=== PATIENT | female | born 1940 | race Caucasian/White ===

== ENCOUNTER → 2018-01-04 08:27 | Outpatient (CLI) | payer MEDICARE, OTHER, SELFPAY ==
[2018-01-04 09:28] LABS: Add Manual Diff / Slide Review NO; Basophils Percent Auto 0.9 % (0-2); Eosinophils Percent Auto 0.6 % (2-4); Hematocrit 40.9 % (36-46); Hemoglobin 13.8 g/dL (12.0-16.0); Lymphocytes Percent Auto 23.6 % (25-40); Mean Corpuscular HGB Conc 33.8 % (30-36); Mean Corpuscular Hemoglobin 32.1 PG (26-34); Mean Corpuscular Volume 94.9 fL (80-100); Monocytes Percent Auto 9.9 % (3-14); Neutrophils Absolute Auto 3700 /uL (3000-5900); Platelet Count 404 X10^3/uL (150-400); Red Cell Distribution Width 14.1 % (11.6-14.8); White Blood Cell Count 5.7 X10^3/uL (4.5-11.0)
[2018-01-04 09:50] LABS: Alanine Aminotransferase 32 IU/L (9-52); Albumin 4.3 g/dL (3.5-5.0); Albumin Globulin Ratio 1.5 (1.0-2.8); Alkaline Phosphatase 73 U/L (38-126); Aspartate Aminotransferase 28 IU/L (14-36); BUN Creatinine Ratio 17.1 (6-22); Bilirubin Total 0.6 mg/dL (0.2-1.3); Blood Urea Nitrogen 12 mg/dL (7-17); Calcium 9.7 mg/dL (8.4-10.2); Carbon Dioxide 31 mmol/L (22-32); Chloride 91 mmol/L (98-107); Cholesterol 177 mg/dL (140-199); Estimated Glomerular Filt Rate > 60.0 mL/min (>60); Globulin 2.9 g/dL (1.7-4.1); Glucose 95 mg/dL (80-110); HDL Cholesterol 85 mg/dL (40-60); HEMOLYSIS < 15 (0-50); LDL Cholesterol Calculated 82 mg/dL (<100); Potassium 4.2 mmol/L (3.4-5.1); Sodium 132 mmol/L (137-145); Total Protein 7.2 g/dL (6.3-8.2); Triglycerides 49 mg/dL (35-150)
[2018-01-04 10:05] LABS: Free T4, Direct Thyroxine 1.46 ng/dL (0.78-2.19)
[2018-01-04 10:19] LABS: Thyroid Stimulating Hormone 0.74 uIU/mL (0.47-4.68)
== END ==
PROVIDERS: PCP Internal Medicine; Visit Provider Internal Medicine
DX: I10 Essential (primary) hypertension (principal); E03.9 Hypothyroidism, unspecified; E78.2 Mixed hyperlipidemia
CPT/HCPCS: 36415; 80053; 80061; 84439; 84443; 85025

== ENCOUNTER → 2018-03-01 12:08 | Outpatient (CLI) | payer MEDICARE, OTHER, SELFPAY | PROVIDERS: PCP Internal Medicine; Visit Provider Internal Medicine | DX: M85.852 Other specified disorders of bone density and structure, left thigh (principal); Z78.0 Asymptomatic menopausal state; E07.9 Disorder of thyroid, unspecified | CPT/HCPCS: 77080 ==

== ENCOUNTER 2018-04-29 07:48 | Day surgery (SDC) | payer MEDICARE, OTHER, SELFPAY ==
[2018-04-29] VITALS (13 sets, daily range): BP systolic 77–120; BP diastolic 46–76; PULSE 51–74; RESP 8–17; TEMP 36.3–36.8; O2SAT 93–100; BMI 23.0
[2018-04-29] MEDS: SODIUM CHLORIDE 0.9% 1,000 ML 200 ML IV ×2 (08:18→09:15)
--- NOTE | 2018-04-29 08:39 | P.HP_ITS ---
History of Present Illness Date Patient Seen: 04/29/18 Time Patient Seen: 08:37 Chief complaint: [id number] Narrative: Very pleasant 78-year-old lady who presents today for a screening colonoscopy. Her last colonoscopy was in 2012 and she was noted to have multiple benign polyps at that time. Pathology of all the polyps revealed tubular adenomata structure. 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 No further treatment was recommended as all the margins were clear. Today she denies any problems or symptoms related to the function of her GI tract. She reports she needs colonoscopy for surveillance and screening purposes. Patient History Medical History Essential hypertension (Chronic) Acquired hypothyroidism (Chronic 1979) Osteopenia (Chronic 2004) Chronic back pain (Chronic 2012) Mixed hyperlipidemia (Chronic) Diverticulosis of large intestine without hemorrhage (Chronic 2004) History of adenomatous polyp of colon (Resolved 2011) Chicken pox (Resolved) Hayfever (Resolved) Measles (Resolved) Mumps (Resolved) Pulmonary hypertension (Resolved) Rubella (Resolved) Squamous cell cancer, anus (Resolved ~2011) Surgical History History of rectal surgery (Resolved ~2011) Family & Social History Family History: Reviewed 04/29/18 by Morena Diaz MD Social History: household members family Tobacco & Substance use: Smoking Status Never smoker Meds Home Medications Medication Instructions Recorded Confirmed Type BORON/CA/CU/MG/MN/VIT D/ZINC 1 tab PO Q DAY #0 07/16/12 01/01/18 History (#CALCIUM 600 + MINERALS) COENZYME Q10/VITAMIN E (CO-Q-10) 300 mg PO QDAY #0 11/23/12 01/01/18 History VITAMIN B COMPLEX 1 cap PO QDAY #0 11/23/12 01/01/18 History Vitamin E (VITAMIN E) 400 units PO QDAY #0 11/23/12 01/01/18 History [VITAMIN D3] #0 11/23/12 01/01/18 History aspirin 81 mg PO QDAY #0 11/23/12 01/01/18 History chlorthalidone 25 mg PO QDAY #90 tab 07/01/17 01/01/18 Rx lisinopril 10 mg PO Q DAY #90 tab 07/01/17 01/01/18 Rx simvastatin 40 mg PO QDAY #90 tab 07/01/17 01/01/18 Rx levothyroxine 88 mcg PO QDAY #90 tab 01/12/18 Rx Allergies Allergy/AdvReac Type Severity Reaction Status Date / Time No Known Drug Allergies Allergy Verified 01/01/18 14:12 Review of Systems Review of Systems All systems reviewed & are unremarkable except as noted in HPI and below Exam Vital Signs (past 8 hours): - 04/29/18 08:13 Temperature 97.4 F L Pulse Rate 74 Respiratory Rate 15 Blood Pressure 120/76 Pulse Oximetry 97 Oxygen Delivery Method Room Air Narrative Exam Narrative: Very pleasant well-nourished well-developed lady in no distress HEENT: Normocephalic and atraumatic, pupils equal round react to light accommodation with anicteric sclera Lungs: Clear to auscultation bilaterally Heart: Regular rate and rhythm without murmur rub or gallop Abdomen: Soft, nontender, active bowel sounds Extremities: Warm and well perfused Assessment & Plan Plan: Assessment/Plan Narrative: Very pleasant lady with personal history of tubular adenomas as well as a squamous cell carcinoma of the perianal region. We discussed the risks and benefits of repeat colonoscopy today the patient expressed a desire to complete the procedure.
[2018-04-29] MEDS: MIDAZOLAM 5 MG/5 ML VIAL IV (09:00)
[2018-04-29] MEDS: fentaNYL 250 MCG/5 ML INJ IV (09:02)
--- NOTE | 2018-04-29 09:08 | PM.OP.1 ---
Operative Date/Time/Diagnoses Date of procedure: 04/29/18 Time of procedure: 09:08 Pre-op diagnosis: Screening colonoscopy Post-op diagnosis: same Procedure & Clinicians Procedure: Colonoscopy to the cecum Same procedure as scheduled: Yes Indications: Last colonoscopy 5 years ago Personal history of colon polyps Surgeon: Morena Diaz Anesthesia Type: Sedation (Versed 4 mg; fentanyl 150 mcg) Operative Notes Findings: 1. Very poor prep with solid stool beginning at the splenic flexure 2. No gross polyps or obvious lesions 3. Sigmoid and descending colon diverticulosis with mostly very large pockets of a cm or more. No evidence of infection, inflammation, or hemorrhage 4. Elongated and tortuous sigmoid and transverse colons. The colon wall is essentially atonic 5. Grade 1 internal hemorrhoids 6. Perianal scar identified with no evidence of recurrent lesion Closure Type: not applicable Procedure in detail: After obtaining informed consent, the patient was brought to the GI suite and placed in the left lateral decubitus position on the examination table. After placement of appropriate monitors, the patient was given incremental doses of Versed and Fentanyl until an appropriate level of sedation was achieved. A time out was held per SCOAP protocol. A digital rectal examination was performed and did not reveal any masses or obstructing lesions. The colonoscope was gently passed into the patient's anus and the entire colon navigated to the level of the cecum with significant difficulty due to colon elongation and atony. Multiple changes of position and external pressure were required to reach the cecum. Solid stool was encountered in clumps starting at the splenic flexure. There was thick fecal material throughout the remainder of the colon. We made a concerted effort to wash this out and aspirated as much as possible to give as completing exam as we are capable of providing in this situation. Once in the cecum, the scope was withdrawn being sure to go before and beyond all mucosal folds and prominences and get an excellent examination. The findings are noted above. At the level of the rectal vault, the scope was retroflexed and the internal anal canal was examined. The scope was straightened and air aspirated from the colon. The instrument was removed from the patient's body and the procedure was concluded. The patient was allowed to awaken from sedation without difficulty and taken to the post-anesthesia care unit in good condition. Total sedation time 30 min Total withdrawal time 16 min Complications: none Condition: stable Disposition: PACU Plan for aftercare: 1. Discharge to home 2. Plan for next colonoscopy in 5 years or as clinically indicated
--- NOTE | 2018-04-29 11:00 | SUR.PHASEII ---
pt dressed , steady on feet, ready to go home at 1045
== END 2018-04-29 10:46 | disposition home or self-care (01) ==
PROVIDERS: PCP Internal Medicine; Visit Provider Surgery
PROC: 0DJD8ZZ Inspection of Lower Intestinal Tract, Via Natural or Artificial Opening Endoscopic (ICD-10-PCS; CPT 45378; principal; 2018-04-29 08:45)
DX: Z86.010 Personal history of colon polyps (principal); K57.30 Diverticulosis of large intestine without perforation or abscess without bleeding; K64.0 First degree hemorrhoids; I10 Essential (primary) hypertension; E03.9 Hypothyroidism, unspecified; E78.5 Hyperlipidemia, unspecified
CPT/HCPCS: G0121; 99152; 99153; J2250; J3010

== ENCOUNTER → 2018-08-24 10:21 | Outpatient (CLI) | payer MEDICARE, OTHER, SELFPAY ==
--- NOTE | 2018-08-24 | DI.MG.S_ITS ---
BILATERAL DIGITAL SCREENING MAMMOGRAM 3D/2D WITH CAD: 08/24/2018 CLINICAL: Routine screening. Comparison is made to exams dated: 08/17/2017 mammogram, 07/25/2016 mammogram, 07/24/2015 mammogram, and 07/12/2014 mammogram - [facility]. The tissue of both breasts is heterogeneously dense. This may lower the sensitivity of mammography. Current study was also evaluated with a Computer Aided Detection (CAD) system. There are benign diffuse calcifications in both breasts. No significant masses, calcifications, or other findings are seen in either breast. There has been no significant interval change. IMPRESSION: There is no mammographic evidence of malignancy. A 1 year screening mammogram is recommended. This exam was interpreted at Station ID: [id number]. NOTE: For mammograms, a report in lay terms will be sent to the patient. Approximately 15% of breast malignancies will not be visualized mammographically. In the management of a palpable breast mass, a negative mammogram must not discourage biopsy of a clinically suspicious lesion. Electronically Signed By: Holden cooley/tejal:08/24/2018 18:25:30 letter sent: Normal Exam ACR BI-RADS Category 2: Benign Finding(s) 3342F
== END ==
PROVIDERS: PCP Internal Medicine; Visit Provider Internal Medicine
DX: Z12.31 Encounter for screening mammogram for malignant neoplasm of breast (principal)
CPT/HCPCS: 77063; 77067

== ENCOUNTER → 2018-09-04 08:54 | Outpatient (CLI) | payer MEDICARE, OTHER, SELFPAY ==
[2018-09-04 10:04] LABS: Alanine Aminotransferase 27 IU/L (9-52); Albumin 4.5 g/dL (3.5-5.0); Albumin Globulin Ratio 1.7 (1.0-2.8); Alkaline Phosphatase 37 U/L (38-126); Aspartate Aminotransferase 24 IU/L (14-36); BUN Creatinine Ratio 22.9 (6-22); Bilirubin Total 0.5 mg/dL (0.2-1.3); Blood Urea Nitrogen 16 mg/dL (7-17); Carbon Dioxide 31 mmol/L (22-32); Chloride 91 mmol/L (98-107); Cholesterol 198 mg/dL (140-199); Estimated Glomerular Filt Rate > 60.0 mL/min (>60); Globulin 2.6 g/dL (1.7-4.1); Glucose 84 mg/dL (80-110); HDL Cholesterol 106 mg/dL (40-60); HEMOLYSIS < 15 (0-50); LDL Cholesterol Calculated 84 mg/dL (<100); Potassium 4.5 mmol/L (3.4-5.1); Sodium 134 mmol/L (137-145); Total Protein 7.1 g/dL (6.3-8.2); Triglycerides 40 mg/dL (35-150)
[2018-09-04 10:19] LABS: Free T4, Direct Thyroxine 1.22 ng/dL (0.78-2.19)
[2018-09-04 10:33] LABS: Thyroid Stimulating Hormone 1.19 uIU/mL (0.47-4.68)
== END ==
PROVIDERS: PCP Internal Medicine; Visit Provider Internal Medicine
DX: E03.9 Hypothyroidism, unspecified (principal); E78.2 Mixed hyperlipidemia; I10 Essential (primary) hypertension
CPT/HCPCS: 36415; 80053; 80061; 84439; 84443

== ENCOUNTER → 2019-08-30 11:15 | Outpatient (CLI) | payer MEDICARE, OTHER, SELFPAY ==
--- NOTE | 2019-08-30 | DI.MG.S_ITS ---
BILATERAL DIGITAL SCREENING MAMMOGRAM 3D/2D WITH CAD: 08/30/2019 CLINICAL: Routine screening. Comparison is made to exams dated: 08/24/2018 mammogram, 08/17/2017 mammogram, and 07/25/2016 mammogram - [facility]. The tissue of both breasts is heterogeneously dense. This may lower the sensitivity of mammography. Current study was also evaluated with a Computer Aided Detection (CAD) system. There are benign diffuse calcifications in both breasts. No significant masses, calcifications, or other findings are seen in either breast. There has been no significant interval change. IMPRESSION: There is no mammographic evidence of malignancy. A 1 year screening mammogram is recommended. This exam was interpreted at Station ID: [id number]. NOTE: For mammograms, a report in lay terms will be sent to the patient. Approximately 15% of breast malignancies will not be visualized mammographically. In the management of a palpable breast mass, a negative mammogram must not discourage biopsy of a clinically suspicious lesion. Electronically Signed By: Aida joseph/tejal:08/30/2019 16:01:39 letter sent: Normal Exam ACR BI-RADS Category 2: Benign Finding(s) 3342F
== END ==
PROVIDERS: PCP Internal Medicine; Referring Provider Internal Medicine; Visit Provider Internal Medicine
DX: Z12.31 Encounter for screening mammogram for malignant neoplasm of breast (principal)
CPT/HCPCS: 77063; 77067

== ENCOUNTER → 2019-10-24 13:34 | Outpatient (CLI) | payer MEDICARE, OTHER, SELFPAY ==
--- NOTE | 2019-10-24 | DI.RAD.S_ITS ---
PROCEDURE: XR HIP W PEL IF DONE RT 2V INDICATIONS: Unilateral primary osteoarthritis, right hip TECHNIQUE: AP pelvis with lateral view(s) of the right hip(s). COMPARISON: None. FINDINGS: Bones: No fractures or dislocations. Pelvic ring appears intact. No suspicious bony lesions. Severe right hip joint degeneration with [id number] appearance. Scattered degenerative subchondral sclerosis and spurring. Mild left hip joint degeneration. Lower lumbar spondylosis and facet arthropathy. Subchondral sclerosis and cystic change also noted at the pubis symphysis. Soft tissues: The visualized bowel gas pattern is normal. No suspicious soft tissue calcifications. IMPRESSION: Severe right hip joint degeneration with [id number] appearance Lower lumbar spondylosis and facet disease Dictated by: Maximus Kumar M.D. on 10/24/2019 at 14:33 Approved by: Maximus Kumar M.D. on 10/24/2019 at 14:35
== END ==
PROVIDERS: PCP Internal Medicine; Referring Provider Chiropractor; Visit Provider Chiropractor
DX: M16.11 Unilateral primary osteoarthritis, right hip (principal); M47.816 Spondylosis without myelopathy or radiculopathy, lumbar region
CPT/HCPCS: 73502

== ENCOUNTER → 2019-11-04 14:21 | Outpatient (CLI) | payer MEDICARE, OTHER, SELFPAY ==
[2019-11-04 16:40] LABS: Add Manual Diff / Slide Review NO; Basophils Absolute Auto 100 /uL (0-100); Basophils Percent Auto 0.7 % (0-2); Eosinophils Absolute Auto 0 /uL (0-450); Eosinophils Percent Auto 0.4 % (2-4); Hemoglobin 12.1 g/dL (12.0-16.0); Lymphocytes Absolute Auto 1800 /uL (1100-4500); Lymphocytes Percent Auto 22.3 % (25-40); Mean Corpuscular HGB Conc 33.6 % (30-36); Mean Corpuscular Hemoglobin 32.1 PG (26-34); Mean Corpuscular Volume 95.5 fL (80-100); Monocytes Absolute Auto 600 /uL (0-900); Monocytes Percent Auto 7.9 % (3-14); Neutrophils Absolute Auto 5500 /uL (1500-7000); Neutrophils Percent Auto 68.7 % (50-75); Platelet Count 472 X10^3/uL (150-400); Red Blood Cell Count 3.77 X10^6/uL (4.0-5.2); Red Cell Distribution Width 13.7 % (11.6-14.8); White Blood Cell Count 8.1 X10^3/uL (4.5-11.0)
[2019-11-04 17:05] LABS: Alanine Aminotransferase 15 IU/L (<35); Albumin 4.8 g/dL (3.5-5.0); Albumin Globulin Ratio 1.7 (1.0-2.8); Alkaline Phosphatase 43 U/L (38-126); Aspartate Aminotransferase 29 IU/L (14-36); BUN Creatinine Ratio 31.8 (6-22); Bilirubin Total 0.3 mg/dL (0.2-1.3); Blood Urea Nitrogen 21 mg/dL (7-17); Calcium 9.9 mg/dL (8.4-10.2); Carbon Dioxide 30 mmol/L (22-32); Chloride 88 mmol/L (98-107); Estimated Glomerular Filt Rate > 60.0 mL/min (>60); Globulin 2.9 g/dL (1.7-4.1); Glucose 94 mg/dL (80-110); HEMOLYSIS < 15 (0-50); Potassium 3.6 mmol/L (3.4-5.1); Sodium 128 mmol/L (137-145); Total Protein 7.7 g/dL (6.3-8.2)
[2019-11-04 17:15] LABS: C-Reactive Protein Quant < 0.5 mg/dL (<1.0); Erythrocyte Sedimentation Rate 5 MM/HR (0-20)
[2019-11-04 17:21] LABS: Free T4, Direct Thyroxine 1.38 ng/dL (0.78-2.19)
[2019-11-04 17:35] LABS: Thyroid Stimulating Hormone 2.67 uIU/mL (0.47-4.68)
== END ==
PROVIDERS: PCP Internal Medicine; Referring Provider Internal Medicine; Visit Provider Internal Medicine
DX: E03.9 Hypothyroidism, unspecified (principal); E78.2 Mixed hyperlipidemia; G89.29 Other chronic pain; I10 Essential (primary) hypertension; M54.9 Dorsalgia, unspecified; M85.80 Other specified disorders of bone density and structure, unspecified site
CPT/HCPCS: 36415; 80053; 84439; 84443; 85025; 85651; 86140

== ENCOUNTER → 2019-11-17 09:39 | Outpatient (CLI) | payer MEDICARE, OTHER, SELFPAY ==
[2019-11-17 09:50] LABS: Bacteria Urine None Seen; RBC Urine None Seen (0-5/HPF); WBC Urine None Seen (0-5/HPF)
[2019-11-17 10:03] LABS: Add Manual Diff / Slide Review NO; Basophils Absolute Auto 0 /uL (0-100); Basophils Percent Auto 0.7 % (0-2); Eosinophils Absolute Auto 0 /uL (0-450); Eosinophils Percent Auto 0.3 % (2-4); Hematocrit 36.8 % (36-46); Hemoglobin 12.5 g/dL (12.0-16.0); Lymphocytes Absolute Auto 1500 /uL (1100-4500); Lymphocytes Percent Auto 21.8 % (25-40); Mean Corpuscular Hemoglobin 32.3 PG (26-34); Mean Corpuscular Volume 94.8 fL (80-100); Monocytes Absolute Auto 600 /uL (0-900); Monocytes Percent Auto 9.4 % (3-14); Neutrophils Absolute Auto 4700 /uL (1500-7000); Neutrophils Percent Auto 67.8 % (50-75); Platelet Count 479 X10^3/uL (150-400); Red Blood Cell Count 3.88 X10^6/uL (4.0-5.2); Red Cell Distribution Width 13.3 % (11.6-14.8); White Blood Cell Count 6.9 X10^3/uL (4.5-11.0)
[2019-11-17 10:42] LABS: BUN Creatinine Ratio 35.6 (6-22); Blood Urea Nitrogen 21 mg/dL (7-17); Calcium 9.8 mg/dL (8.4-10.2); Carbon Dioxide 29 mmol/L (22-32); Chloride 90 mmol/L (98-107); Estimated Glomerular Filt Rate > 60.0 mL/min (>60); Glucose 101 mg/dL (80-110); HEMOLYSIS < 15 (0-50); Sodium 129 mmol/L (137-145)
[2019-11-17 11:04] LABS: Appearance Urine UA CLEAR; Bilirubin Urine UA NEGATIVE (NEGATIVE); Color Urine UA YELLOW; Glucose Urine UA NEGATIVE (Negative); Ketones Urine UA NEGATIVE (NEGATIVE); Leukocyte Esterase Urine UA NEGATIVE (NEGATIVE); Nitrite Urine UA NEGATIVE (Negative); Occult Blood Urine UA NEGATIVE (Negative); Protein Urine UA NEGATIVE (Negative); Urobilinogen Urine UA 0.2 E.U./dL (0.2)
[2019-11-17 11:09] LABS: Culture Indicated Urine Cult Not Indicated
== END ==
PROVIDERS: PCP Internal Medicine; Referring Provider Orthopaedic Surgery; Visit Provider Orthopaedic Surgery
DX: Z01.812 Encounter for preprocedural laboratory examination (principal); R73.9 Hyperglycemia, unspecified; N39.0 Urinary tract infection, site not specified
CPT/HCPCS: 36415; 80048; 81001; 83036; 85025; 93005

== ENCOUNTER → 2019-12-05 12:05 | Outpatient (CLI) | payer MEDICARE, OTHER, SELFPAY ==
[2019-12-08 16:14] LABS: COVID19 Sendout Not Detected (Not Detected)
== END ==
PROVIDERS: PCP Internal Medicine; Visit Provider Registered Nurse
DX: Z01.812 Encounter for preprocedural laboratory examination (principal)
CPT/HCPCS: 87635

== ENCOUNTER → 2019-12-07 16:15 | Outpatient (CLI) | payer MEDICARE, OTHER, SELFPAY ==
[2019-12-07 18:07] LABS: COVID19 -Nasal RAPID Negative (Negative)
== END ==
PROVIDERS: PCP Internal Medicine; Visit Provider Registered Nurse
DX: Z01.812 Encounter for preprocedural laboratory examination (principal)
CPT/HCPCS: 87635

== ENCOUNTER 2019-12-09 09:52 | Observation (INO) | payer MEDICARE, OTHER, SELFPAY ==
[2019-11-30 12:56] VITALS: BMI 22.1
[2019-12-08] VITALS (24 sets, daily range): BP systolic 79–140; BP diastolic 43–81; PULSE 55–71; RESP 7–18; TEMP 35.6–37.1; O2SAT 88–99; BMI 21.5
--- NOTE | 2019-12-08 | DI.RAD.S_ITS ---
PROCEDURE: XR HIP W PEL IF DONE RT 2V INDICATIONS: RIGHT CHRISTOPH TECHNIQUE: AP pelvis and lateral view of the right hip acquired. COMPARISON: [facility], [place], XR HIP W PEL IF DONE RT 2V, 12/08/2019, 9:50. [facility], [place], XR HIP W PEL IF DONE RT 2V, 10/24/2019, 13:34. FINDINGS: Bones: Patient is status post right hip arthroplasty, with hardware components in expected positions. The hip joint appears congruent. The visualized bony structures appear intact. Soft tissues: Overlying postoperative changes are noted. No suspicious soft tissue densities. IMPRESSION: Normal alignment after right total hip arthroplasty. Dictated by: Jose Fuller M.D. on 12/08/2019 at 12:09 Approved by: Jose Fuller M.D. on 12/08/2019 at 12:09
--- NOTE | 2019-12-08 06:00 | DI.RAD.S_ITS ---
PROCEDURE: XR HIP W PEL IF DONE RT 2V INDICATIONS: postop right hip TECHNIQUE: Fluoroscopic images were obtained during an operative procedure and submitted for interpretation following the completion of the procedure. COMPARISON: [facility], [place], XR HIP W PEL IF DONE RT 2V, 12/08/2019, 11:20. [facility], [place], XR HIP W PEL IF DONE RT 2V, 10/24/2019, 13:34. FINDINGS: These fluoroscopic images were performed for intraoperative localization. On these images, right hip arthroplasty hardware is placed. Please correlate with intraoperative findings. IMPRESSION: Normal intraoperative examination. Dictated by: Al Juarez M.D. on 12/08/2019 at 12:01 Approved by: Al Juarez M.D. on 12/08/2019 at 12:02
[2019-12-08] MEDS: GABAPENTIN 300 MG CAPSULE PO (06:56)
[2019-12-08] MEDS: ACETAMINOPHEN 325 MG TABLET 975 MG PO (06:56)
[2019-12-08] MEDS: CELECOXIB 200 MG CAPSULE PO (06:57)
[2019-12-08] MEDS: LACTATED RINGERS 1,000 ML 42 ML IV ×3 (06:57→11:11)
[2019-12-08] MEDS: VANCOMYCIN 1,000 MG/200 ML PIGGYBACK 200 MG IV (07:05)
--- NOTE | 2019-12-08 07:36 | PM.PREOP ---
Pre-operative Note COVID-19 COVID-19 status: Negative Interval Note History & Physical reviewed/Exam performed by Physician: Yes Changes to H&P: No
--- NOTE | 2019-12-08 07:50 | PM.OP.1 ---
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 Non-operative management has failed and the patient has requested total hip replacement. The risks, benefits and alternatives to surgery were discussed with the patient prior to proceeding. Risks discussed included, but were not limited to, failure to relieve pain, leg length discrepancy, dislocation, stiffness, infection, nerve damage, deep venous thrombosis, pulmonary embolism, stroke, coma, heart attack, permanent paralysis and , as well as the potential need for eventual revision of the prosthetic. Surgeon: Chastity Hightower Technical Operations Specialist: Manuel Brown Anesthesia Type: General and Spinal Operative Notes Findings: Severe right hip AVN, soft bone Closure Type: primary Specimen(s): none sent Prosthetic devices, grafts, tissues, transplants, or devices: Hightower and Nephew R3 50, 50 neutral by 32, size 3 anthology standard offset, -3 femoral head by 32 Oxinium 15 mm screw Estimated Blood Loss (mL): 250 Blood products transfused: none Procedure in detail: The patient was brought to the operating room. Patient was carefully positioned in the supine position. Time-out was performed and antibiotics were given. Anesthesia was induced. She was positioned in the on the table in order to allow hyperextension of the hip. The right lower extremity was prepped and draped in a standard sterile fashion. An anterior right hip incision was made 1 fingerbreadth lateral to the anterior superior iliac spine and extended distally towards the greater trochanter. Dissection was carried out through skin and subcutaneous tissues. The skin and subcutaneous tissues were carefully injected with Lidocaine with epi. Superficial hemostasis was achieved. The fascia over the tensor fascia gena was defined and incised with a knife. Two Allis clamps were used to grasp the fascia. Tensor fascia gena was retracted laterally. A gelpi retractor was placed. Dissection was carried out down along the neck. The circumflex vessels were carefully identified and cauterized with the Aqua Mantis. There was good visualization of the femoral neck. A Cobra was placed superior to the neck and the gluteus fibers were carefully stripped from that superior aspect of the capsule. A 2nd retractor was placed along the inferior aspect of the neck. The rectus insertion along the capsule was partially released. A 3rd retractor that was then gently placed over the rim of the acetabulum under the rectus. Capsule was carefully incised and released from the intertrochanteric line circumferentially superior to the mid sagittal line and inferiorly to the mid sagittal line until the lesser trochanter was palpable. A tag stitch was placed both in the superior and inferior limb of the capsular insertion. Along the acetabulum capsule was also released up to the mid sagittal 12:00 position. A portion of the labrum was resected. A saw was used to perform an osteotomy at the level of the intertrochanteric line and the junction of the superior femoral neck leaving approximately 1 finger breath of residual inferior neck above the lesser trochanter. A 2nd cut was made along the femoral neck at the base of the head and a napkin ring of neck was removed. Corkscrew was placed in the femoral head and the head was removed without difficulty. Retractors were then repositioned around the acetabulum. Residual labrum was resected and additional osteophytes were removed. A reamer that was 4 mm below the templated size was placed by hand in the acetabulum and it was reamed to centralize the acetabulum. It was then reamed up to 2 under the templated size and fluoroscopy was brought in to confirm the position of the reaming and depth of reaming. I reamed 1 under the anticipated size and touched the rim with line to line reaming. A trial cup was placed and noted that it was appropriately sized and fluoroscopy confirmed position and depth. The component was open and inserted without difficulty fluoroscopic imaging was used to confirm that the cup had been adequately seated and was well positioned. The cup was further stabilized with a single screw. The cup was tested and noted to be stable. Attention was then directed to the femur. The femur was gently hyperextended additional capsular release was performed as needed in order to allow adequate visualization of the proximal femur with elevation of the femur. Patient was placed in a hyperextended slightly adducted position with maximum external rotation. Box osteotome was used to check for any residual neck as well as sclerotic bone along the trochanter. [place]well pepper was placed in the femur. Additional broaching was performed. Canal finder was used to determine the alignment of the canal and position. Size 1 broach was placed. The canal was then appropriately broached up to the templated size as long as there was adequate stability of the broach and serial advancement of the broach without excessive impingement. Specific attention was directed at avoiding varus attempting to direct the distal aspect of the broach more anteriorly and avoiding excessive anteversion. Trial reduction showed acceptable range of motion, good stability, no posterior impingement, evangelical of leg length and appropriate lateral shuck. I also hyperflexed the hip and checked that there was no impingement anteriorly and there was good stability with flexion, adduction and internal rotation. Marcaine and Exparel were injected. The stem was placed without difficulty. Repeat trial reduction and x-ray showed acceptable overall position, length, and no evidence of the femoral fracture. Final head was placed. Wound was meticulously irrigated with normal saline. The hip was reduced and additional Exparel and Marcaine were injected. The capsule was closed with interrupted nonabsorbable sutures. The fascia of the tensor was closed with interrupted and running Vicryl. No drain was placed. Any tensor fascia gena muscle that appeared to be contused or injured which was a minimal amount was carefully resected. Capsule around the tensor was injected with Exparel and Marcaine. The skin was closed with barbed stitches for the subcutaneous tissue and skin. We also used surgical glue. The wound was dressed sterilely. Brief Betadine soak was also used and was meticulously irrigated with normal saline. Patient was transferred to recovery room in satisfactory condition. Complications: none Post-operative Condition: stable Disposition: Acute Care Plan for aftercare: The patient will be maintained on a standard total hip replacement protocol with weight bearing as tolerated and anterior hip precautions. The patient will receive Aspirin and sequential compression devices for DVT prophylaxis. The patient will be discharged home when safe for the home environment.
[2019-12-08] MEDS: CEFAZOLIN 2 GM/100 ML FROZ.PIGGY IV ×3 (07:59→23:46)
[2019-12-08] MEDS: TRANEXAMIC ACID 1,000 MG VIAL 1000 MG INJ ×2 (08:25→10:46)
--- NOTE | 2019-12-08 08:39 | SUR.OPER ---
Supine on padded Lebo table with bilateral legs secured in padded positioning boots and suspended in positioning spars, operative leg in traction per surgeon. Head on one pillow. Arm on non-operative side secured on padded armboard <90 degrees abduction. Arm on operative side padded and resting across chest then secured with tape over sheet. Padded perineal post in place per surgeon.
[2019-12-08] MEDS: BUPIVACAINE 0.25% W/ EPI 30 ML VIAL 60 ML INJ (08:43)
[2019-12-08] MEDS: BUPIVACAINE LIPOSOME 266 MG/20 ML VIAL INJ (08:43)
[2019-12-08] MEDS: SODIUM CHLORIDE IRRIG SOLUTION 250 ML, POVIDONE-IODINE SPONGE STICKS 1 APPLIC IRR (08:46)
--- NOTE | 2019-12-08 12:01 | SUR.PHASEI ---
Report called to Maryam
--- NOTE | 2019-12-08 12:30 | CM.DANOTE ---
Discharge Planning/Care Management DCP: assessment: case received, EMR reviewed and went to room to meet pt. She has not yet admitted to her acute care room from surgery. Pt is a 79 year old female who admitted early this morning for a scheduled surgery: R CHRISTOPH/anterior approach. Surgeon: Dr. Rip Hightower Payer: Medicare dn [employer]. Admission status: SDC (OUTPT W/BED): confirmed by UR GABY Edmondson after a discussion with Dr. Hightower. Expect pt to arrive to the acute care floor sometime this afternoon. PT will see pt. P: pt identifies her plan: per pre-op phone discussion with GABY Donaldson: as home when stable for same with her daughter Clementina to assist her. Clementina's tel #: [phone] Will check in later today or in the morning to confirm that this remains her plan and follow accordingly for any d/c needs that may arise. CM Discharge Assessment Start: 12/08/19 12:28 Freq: Status: Active Protocol: Document 12/08/19 12:29 ITV (Rec: 12/08/19 12:30 ITV [id number]) Discharge Planning Assessment Advance Directives? Yes Advance Directives on File No History Provided By Medical Record Prior Living Arrangements Apartment/Condo Household Members none Whiteboard Updated in Patient Room with Yes name and ext. # of Tankage Grinder Review Status In Process Pre-Anesthesia Assessment Start: 11/30/19 12:56 Freq: Status: Active Protocol: Document 11/30/19 12:56 CAB (Rec: 11/30/19 13:19 CAB [id number]) Pre-Anesthesia Assessment Preferred Name Senia Patient Information Reviewed Via Phone Assessment Assessment Completed With Patient Diagnostic Results BMP/CMP,CBC,EKG Comment Labs/EKG @ 11/17/19-COVID testing not identified Primary Care Provider Yogi Murcia Seen Specialist in Last 12 Months Yes Specialist Seen Opthamologist/In Home Tutor, Orthopedist Primary Language Bulgarian [employer] Driver Required No Height 162.56 cm Weight 58.513 kg Body Mass Index (BMI) 22.1 Hearing Ability Normal Visual Impairment No Limitations Visual Assist None Dentition Type Teeth, Natural Present Barriers to Learning None Other Aids No Hx Anesthesia Reactions No Hx Family Anesthesia Reaction No Hx Malignant Hyperthermia No Hx Blood Transfusions No Anesthesia Review Requested No alcohol intake current alcohol intake frequency 0-2 drinks per day Smoking Status Never smoker Substance Use Type does not use Pain Present Pain Reported Musculoskeletal Symptoms Abnormal Gait,Back Pain, Difficulty Walking,Joint Pain, Limited Range of Motion History of Falling (Recent or History of No ) Patient is completely paralyzed or No completely immobile Prosthesis or Orthotic Device Cane Mental Status Oriented to own ability Is patient on oxygen? No Does patient have MCCANN/SOB No Hx Sleep Apnea No Currently Taking a Beta Liz No Can You Climb a Flight of Stairs Without Yes SOB Hx Chest Pain No Hx SOB No Hx Syncope or Dizziness No Anti-Coagulant Therapy No Has a Bookbinder Apprentice No Cardiac Testing No Hx Pacemaker/ICD No Pacemaker Rep Required? No Cardiac Clearance Received Not Applicable Diet Type At Home Low Carb dysphagia No Urinary Catheter Present No Hx Urinary Self Catheterization No Diabetes No HgbA1C 5.4 Date 11/17/19 Patient No Lactating No Hx Drug Resistant Organism No Presence of External or Internal Medical No Devices Have you had any close contact with No someone diagnosed with COVID-19? Evaluation/Screening for possible COVID- Yes 19 infection completed? Marital Status / Lives With none Prior Living Arrangements Apartment/[place] [employer] Support System Child/Children Does the Patient Have Assistance After Yes: Daughter will stay with Surgery pt at [place] to assist Patient Discharge Plan Description Return Home Comment Pt advised overnight length of stay per surgeon Feels Safe in Current Environment Yes Been Physically Hurt or Threatened By a No Person in Current Environment Do you have thoughts of harming yourself None or others? Are you currently considering suicide? No Do you have a plan to hurt yourself or No Plan others? Do You Have Any Spiritual Beliefs That No May Affect Your HC Choices? Do You Have Any Cultural Practices That No May Affect Your HC Choices? Who Can We Speak to About Patient's Care Family, friends Identifying Code for Release of Patient Declines to issue Information Health Care Proxy/Next of Kin Clementina (daughter) Health Care Proxy Emergency Contact Name Clementina (daughter) Emergency Contact Advance Directives? Yes Advance Directives on File No Requested Patient Bring Advanced Yes Directives DOS Power of Judge Clerk Yes Power of Judge Clerk Name Clementina (flash) Power of Judge Clerk PAC Instructions Do not shave/clip surgical site,Durable medical equipment ,Medications to take/avoid, Nasal antibiotic,No ETOH/ petroleum product on skin DOS, NPO,Post-op transportation,Pre -surgical wash,Sturdy shoes/ comfortable clothes,Do not bring valuables and remove jewelry
[2019-12-08] MEDS: LACTATED RINGERS 1,000 ML 125 ML IV (13:20)
[2019-12-08] MEDS: IBUPROFEN 400 MG TABLET PO ×3 (13:58→20:55)
[2019-12-08] MEDS: ACETAMINOPHEN 325 MG TABLET 650 MG PO ×2 (13:58→20:55)
--- NOTE | 2019-12-08 14:28 | PC.NURSE ---
Patient arrived to the floor at 1207. She denies pain and states that she is comfortable. Tylenol and ibuprofen given to patient in case she gets up or works with physical therapy, she states that Dr. Hightower said she may be able to go home later. Patient is groggy but Alert. Her appetite is good and dressing to her anterior hip is cdi with aquacel. Patient is on LR at 125cc/hr, and iv patent and tolerating fluids fine. CMS wnl to her bilateral lower extremities. She is comfortable and resting well.
--- NOTE | 2019-12-08 16:02 | PT.IIE ---
Current Diagnoses Unilateral primary osteoarthritis, right hip (12/08/19) Surgery Performed Operation Date: 12/08/19 07:45 Actual Procedures p Total Hip Arthroplasty/Anterior Approach(Right) - Chastity Hightower MD Surgical History (Last Updated 11/30/19 @ 13:12 by Gabbie Donaldson RN) History of colonoscopy (Acute) History of rectal surgery (Resolved ~2011) Hx of bilateral cataract extraction (Acute) Medical History (Last Reviewed 04/29/18 @ 08:38 by Morena Diaz MD) Acquired hypothyroidism (Chronic 1979) Chicken pox (Resolved) Chronic back pain (Chronic 2012) Diverticulosis of large intestine without hemorrhage (Chronic 2004) Essential hypertension (Chronic) Hayfever (Resolved) History of adenomatous polyp of colon (Resolved 2011) Measles (Resolved) Mixed hyperlipidemia (Chronic) Mumps (Resolved) Osteopenia (Chronic 2004) Pulmonary hypertension (Resolved) Rubella (Resolved) Squamous cell cancer, anus (Resolved ~2011) Physical Therapy Inpatient Evaluation/Re-Eval M1 PT/OT-IP Prior Functional Status Start: 12/08/19 17:05 Freq: NEEDED Status: Active Protocol: Document 12/08/19 16:02 AB (Rec: 12/08/19 17:19 AB [id number]) Medical Review Prior Functional Status Medical History Reviewed Yes Communication able to make needs known Mobility and Gait pt stated that she is independent with all mobilities and ambulation without AD but has been using a SPC for the las week1/2 due to hip pain. Social History Household Members none Living Arrangements Apartment/Condo Number of Floors (Floors) One Floor Number of Stairs To Enter/Railing? has an elevator to get to her floor Home Environment Walk in Shower Home Equipment Four Wheel Walker,Straight Cane,Shower Seat with Backrest ,Hand Held Shower,Grab Bars Near Toilet Additional Social History Comment pt stated that her daughter will be staying with her until moday to assist her and afterwards will have friends around to assist her M2 PT-IP Current Condition Start: 12/08/19 17:05 Freq: NEEDED Status: Active Protocol: Document 12/08/19 16:02 AB (Rec: 12/08/19 17:19 AB [id number]) Physical Therapy Current Condition Current Condition Evaluation Date 12/08/19 Treatment Diagnosis s/p R CHRISTOPH anterior approach; difficulty in walking Onset Date 12/08/19 Precautions Anterior Hip Precautions No Hip Extension,No Hip External Rotation Weight Bearing Status Weight Bearing Status Weight Bear as Tolerated Allowed Weight Bearing Amount (enter % RLE WBAT or #) (%) M3 PT-IP Subjective Start: 12/08/19 17:05 Freq: NEEDED Status: Active Protocol: Document 12/08/19 16:02 AB (Rec: 12/08/19 17:19 AB [id number]) Subjective Physical Therapy Visit Type Type Initial Evaluation Visit Start Time 16:02 Visit Stop Time 16:45 Total Visit Minutes 43 Number of HEADING AND PRIMING OPERATOR Visits 0 Physical Therapy Visit Comments Patient Comments pt is agreeable to do PT Therapy Pain Assessment Pain Present Pain Present Denied Pain M4 PT-IP Mobility and Gait Start: 12/08/19 17:05 Freq: NEEDED Status: Active Protocol: Document 12/08/19 16:02 AB (Rec: 12/08/19 17:19 AB [id number]) PT-Bed Mobility Assessment Sit to Supine Sit to Supine Standby Assistance PT-Transfer Assessment Sit to and From Stand Sit to and from Stand Minimal Assistance,1 Person Assistance,Use of Upper Extremities Equipment Transfer Assistive Device Gait Belt,Front Wheeled Walker Orthotic/Prosthetic Devices or Brace: No Transfers Transfer Destination Toilet Transfer Technique ambulated using FWW Transfer Ability Level of Assist Minimal Assistance,1 Person Assistance,Use of Upper Extremities Comments Mobility Comments educated pt on anterior hip precautions. BP in supine: 138/72 completed supine to sit SBA and cues. pt was able to sit on EOB SBA. pt completed sit to stand min A and ambulated using FWW to the toilet min A. pt is unsteady and requires cues for safety. pt stated that she feels groggy. pt completed sit to stand from the toilet using grab bar min A and ambulated to the chair using FWW min A. pt started to feel nauseated with (+) emesis. informed nurse. BP checked: 148/81. positioned pt on chair. call light and table placed within reach. Gait Assessment Gait Gait Assistance Required: Minimum Assistance Distance (Feet) 12 Able to Maintain Weight Bearing Status Yes During Gait Assistive Devices Assistive Device Gait Belt,Front Wheeled Walker Orthotic/Prosthetic Devices or Brace: No Gait Deviations General Gait Pattern Antalgic,Decreased Stride Length,Decreased Feet Clearance Factors Limiting Gait Function Factors Limiting Gait Function Decreased Activity Tolerance, Decreased Strength,Difficulty Following Directions,Limited Range of Motion,Poor Balance, Poor Safety Awareness Comments Gait Comments pls refer to mobility section for details presents with unsteady gait and slight hand and trunk tremor noted. pt stated that she feels groggy. PT-Balance Assessment Sitting Balance and Reactions Static Sitting Balance Ability Good Dynamic Sitting Balance Ability Good Standing Balance and Reactions Static Standing Balance Ability Fair Dynamic Standing Balance Ability Fair Device Used FWW M5 PT-IP Objective Assessments Start: 12/08/19 17:05 Freq: NEEDED Status: Active Protocol: Document 12/08/19 16:02 AB (Rec: 12/08/19 17:19 AB [id number]) Orientation Orientation/Cognition Level of Alertness Alert Orientation Name Safety Awareness Decreased Safety Awareness Memory Description Short Term Impaired Gross Range of Motion Lower Extremity ROM Assessment Within Functional Limits Strength Lower Extremity Strength Assessment Within Functional Limits Muscle Tone Muscle Tone WNL Yes M6 PT-IP Treatment Start: 12/08/19 17:05 Freq: NEEDED Status: Active Protocol: Document 12/08/19 16:02 AB (Rec: 12/08/19 17:19 AB [id number]) Physical Therapy Treatment Exercises Exercises Heel Slides Education Education Provided Precautions,Weight Bearing Status,Post-Op Packet,Safety M7 PT-IP Assessment and Plan Start: 12/08/19 17:05 Freq: NEEDED Status: Active Protocol: Document 12/08/19 16:02 AB (Rec: 12/08/19 17:19 AB [id number]) PT Summary Assessment and Plan Potential Rehabilitation Potential Good Status of Condition at Evaluation Evolving Summary Impairments Pain,ROM,Strength,Balance, Coordination,Sensation,Tone, Cognition,Bed Mobility, Transfers,Gait,Activity Tolerance Assessment Summary pt requiring min A with mobility using FWW and unable to tolerate much activity with c/o nausea and (+) emesis. pt plans to go home and daughter will assist her. d/c plan depending on progress but will likely improve during hospital stay. will conduct caregiver training if needed. pt also has a 4WW and not a FWW. will further assess ambulation if pt will be safe with 4WW use but if not, pt will need a FWW. will continue to assess progress. Goals Bed Mobility Goal Independent Transfer Goal Independent,Four Wheeled Walker Gait Goal Independent,Four Wheel Walker Gait Distance 200 Days to Meet Goals 5 Frequency of Treatment Frequency Of Treatment Twice a Day Treatment Plan Physical Therapy Treatment Plan Bed Mobility Training,Transfer Training,Gait Training, Therapeutic Exercise,Balance Retraining,Post Op Education, Discharge Planning,Hot or Cold Pack,Neuromuscular Re-ed, Coordination Retraining,Manual Therapy Other Recommendations and Next Treatment ambulation using 4WW if Focus appropriate Recommendations To Nursing Amount of Assist Needed 1 Person Assist Discharge Recommendations PT Discharge Recommendations Home with Assistance, Outpatient PT Transportation Needs at Discharge Private Vehicle
[2019-12-08] MEDS: ASPIRIN EC 81 MG TABLET PO (20:54)
[2019-12-08] MEDS: DOCUSATE 100 MG CAPSULE PO (20:55)
--- NOTE | 2019-12-09 00:02 | PC.NURSE ---
Patient is alert and oriented. Breath sounds CTA with RA sat of 97%. HRR but bradycardic in 50's; denies dizziness or lightheadedness. Denies nausea at present time. BT hypoactive and has not passed flatus as yet. Voiding without dysuria, frequency or urgency. Able to turn self in bed. Out of bed with walker and 1 assist. Aquacel dressing to right anterior hip is CDI. CMS intact bilaterally. Wearing bilateral calf SCD's. Denies any current pain/discomfort. Fall risk score is moderate; bed alarm is activated.
[2019-12-09] MEDS: IBUPROFEN 400 MG TABLET PO ×3 (00:54→10:12)
[2019-12-09] MEDS: LEVOTHYROXINE 88 MCG TABLET PO (05:14)
[2019-12-09 05:15] VITALS: BP 103/57; PULSE 54; RESP 16; TEMP 36.7; O2SAT 99
[2019-12-09 06:23] LABS: Hemoglobin 10.5 g/dL (12.0-16.0)
--- NOTE | 2019-12-09 07:57 | PM.DS.1 ---
History of Present Illness History of Present Illness Date Patient Seen: 12/09/19 Time Patient Seen: 07:57 Chief complaint: Right Total Hip Arthroplasty/Anterior Approach Narrative: Jennifer had severe hip osteoarthritis. She taken to the operating room where she underwent a right total hip arthroplasty. She tolerated the procedure well. Discharge Providers Provider Date of admission: 12/08/19 06:26 Discharge Date: 12/09/19 Primary care physician: Yogi Murcia MD Consults: 12/08/19 06:00 Consult to Anesthesiology Routine Comment: Consulting Provider: Anesthesiologist Reason for consultation: Regional block for post operative pain control 12/08/19 12:27 Consult to Discharge Planning Routine Comment: Consult to Physical Therapy Evaluate & Treat Comment: Physician Instructions: post op CHRISTOPH protocol Consult to Respiratory Therapy Evaluate & Treat Comment: Physician Instructions: Evaluate and treat Discharge provider: Chastity Hightower MD Summary Hospital Course Discharge Diagnosis: Hip osteoarthritis, total hip arthroplasty Hospital Course: She taken to the operating room where she underwent a total hip arthroplasty through an anterior approach. She tolerated the procedure well. She did have some issues with postoperative nausea. Status at Discharge Cognitive/behavioral status at discharge: oriented Functional status at discharge: uses cane/walker Overall status at discharge: patient is back to baseline Time Spent with Patient Time spent: Less than 30 minutes Exam Vital Signs (past 8 hours): - 12/09/19 05:15 Temperature 98.0 F Pulse Rate 54 L Respiratory Rate 16 Blood Pressure 103/57 L Pulse Oximetry 99 Oxygen Delivery Method Room Air Oxygen Flow Rate 0 Narrative Exam Narrative: She is alert she is oriented her dressing is dry her calfs are soft bilaterally she is able to do an active straight leg raise and has minimal pain with range of motion in her hip Objective Labs Result Diagrams: 12/09/19 05:38 Labs: Laboratory Results - last 24 hr 12/09/19 05:38 Hgb 10.5 L Hct 30.0 L Discharge Plan Discharge Plan Patient Disposition: Home Discharge orders & Medications Prescriptions: New aspirin 81 mg Tablet,Delayed Release (Dr/Ec) 81 mg PO BID Qty: 60 RF: 0 oxycodone 5 mg Tablet 5 mg PO Q3HR PRN (Reason: Pain, Moderate (4-6)) Qty: 30 RF: 0 Continued BORON/CA/CU/MG/MN/VIT D/ZINC (#CALCIUM 600 + MINERALS) 1 tab PO Q DAY Qty: 0 RF: 0 COENZYME Q10/VITAMIN E (CO-Q-10) 300 mg PO QDAY Qty: 0 RF: 0 cholecalciferol (vitamin D3) [Vitamin D3] 25 mcg (1,000 unit) Capsule 25 mcg PO DAILY Qty: 0 RF: 0 VITAMIN B COMPLEX 1 cap PO QDAY Qty: 0 RF: 0 Vitamin E (VITAMIN E) 400 units PO QDAY Qty: 0 RF: 0 chlorthalidone 25 mg tablet 25 mg PO QDAY Qty: 90 RF: 3 lisinopril 10 mg tablet 10 mg PO Q DAY Qty: 90 RF: 3 levothyroxine 88 mcg tablet 88 mcg PO QDAY Qty: 90 RF: 3 simvastatin 40 mg tablet 40 mg PO QDAY Qty: 90 RF: 3 omega-3 fatty acids [Fish Oil Concentrate] 1,000 mg capsule 1,000 mg PO DAILY RF: 0 turmeric 400 mg capsule See Rx Instructions PO DAILY RF: 0 ibuprofen 200 mg capsule 400 mg PO Q8H PRN (Reason: pain) RF: 0 aspirin 325 mg Tablet 325 mg PO DAILY RF: 0 Follow up/Referrals: Yogi Murcia MD [Primary Care Provider] - Chastity Hightower MD [Physician] - Diet/Activity/Treatments Diet: Diet as Tolerated Activity: Walk multiple times a day. Cold/Heat Therapy: Ice multiple times a day. Skin/Wound/Dressing Care Report to your healthcare provider any signs of infection, such as:: chills, fever, night sweats, increased pain, unusual drainage and unusual redness Dressing: Keep dressing on. Okay to shower. Visit Report/Discharge Packet Instructions: DI for Hip Replacement, DI for Prescription Opioid Use Stand Alone Forms: Surgery Discharge Discharge Data Primary Care Provider: Yogi Murcia
[2019-12-09 08:53] VITALS: BP 142/69; PULSE 52; RESP 16; TEMP 35.6; O2SAT 98
--- NOTE | 2019-12-09 09:30 | PT.IPTN ---
Current Diagnoses Unilateral primary osteoarthritis, right hip (12/09/19) Surgery Performed Operation Date: 12/08/19 07:45 Actual Procedures p Total Hip Arthroplasty/Anterior Approach(Right) - Chastity Hightower MD Physical Therapy Treatment Note M2 PT-IP Current Condition Start: 12/08/19 17:05 Freq: NEEDED Status: Discharge Protocol: Document 12/08/19 16:02 AB (Rec: 12/08/19 17:19 AB [id number]) Physical Therapy Current Condition Current Condition Evaluation Date 12/08/19 Treatment Diagnosis s/p R CHRISTOPH anterior approach; difficulty in walking Onset Date 12/08/19 Precautions Anterior Hip Precautions No Hip Extension,No Hip External Rotation Weight Bearing Status Weight Bearing Status Weight Bear as Tolerated Allowed Weight Bearing Amount (enter % RLE WBAT or #) (%) M3 PT-IP Subjective Start: 12/08/19 17:05 Freq: NEEDED Status: Discharge Protocol: Document 12/09/19 09:30 AB (Rec: 12/09/19 11:42 AB [id number]) Subjective Physical Therapy Visit Type Type Treatment Note Visit Start Time 09:30 Visit Stop Time 09:49 Total Visit Minutes 19 Number of METAL INSPECTOR Visits 0 Physical Therapy Visit Comments Patient Comments pt is agreeable to do PT Therapy Pain Assessment Pain Present Pain Present Denied Pain M4 PT-IP Mobility and Gait Start: 12/08/19 17:05 Freq: NEEDED Status: Discharge Protocol: Document 12/09/19 09:30 AB (Rec: 12/09/19 11:42 AB [id number]) PT-Transfer Assessment Sit to and From Stand Sit to and from Stand Standby Assistance Equipment Transfer Assistive Device Gait Belt,Front Wheeled Walker Orthotic/Prosthetic Devices or Brace: No Gait Assessment Gait Gait Assistance Required: Standby Assistance,Contact Guard Assist Distance (Feet) 125 Able to Maintain Weight Bearing Status Yes During Gait Assistive Devices Assistive Device Gait Belt,Front Wheeled Walker ,4 Wheeled Walker Orthotic/Prosthetic Devices or Brace: No Gait Deviations General Gait Pattern Antalgic,Decreased Stride Length,Decreased Feet Clearance Factors Limiting Gait Function Factors Limiting Gait Function Decreased Activity Tolerance, Decreased Strength,Pain,Poor Balance Comments Gait Comments pt sitting on chair without any complaints. reviewed hip precautions with pt. pt completed sit to stand SBA and ambulated in room using FWW ~ 40 ft SBA to occasionally CGA. Assessed ambulation using 4WW and pt completed in hallway ~ 125 ft SBA to CGA and cues for safety and to slow down. pt ambulated back to the chair . call light and table placed within reach. M5 PT-IP Objective Assessments Start: 12/08/19 17:05 Freq: NEEDED Status: Discharge Protocol: Document 12/08/19 16:02 AB (Rec: 12/08/19 17:19 AB [id number]) Orientation Orientation/Cognition Level of Alertness Alert Orientation Name Safety Awareness Decreased Safety Awareness Memory Description Short Term Impaired Gross Range of Motion Lower Extremity ROM Assessment Within Functional Limits Strength Lower Extremity Strength Assessment Within Functional Limits Muscle Tone Muscle Tone WNL Yes M6 PT-IP Treatment Start: 12/08/19 17:05 Freq: NEEDED Status: Discharge Protocol: Document 12/09/19 09:30 AB (Rec: 12/09/19 11:42 AB [id number]) Physical Therapy Treatment Education Education Provided Precautions,Weight Bearing Status,Safety M7 PT-IP Assessment and Plan Start: 12/08/19 17:05 Freq: NEEDED Status: Discharge Protocol: Document 12/09/19 09:30 AB (Rec: 12/09/19 11:42 AB [id number]) PT Summary Assessment and Plan Potential Rehabilitation Potential Good Summary Impairments Pain,ROM,Strength,Balance, Coordination,Sensation,Tone, Cognition,Bed Mobility, Transfers,Gait,Activity Tolerance Progress Towards Goals Progressing Toward Goals Assessment Summary pt requiring SBA to CGA using 4WW and plans to go home today with daughter to assist her. pt may go home with assist when stable. Goals Bed Mobility Goal Independent Transfer Goal Independent,Four Wheeled Walker Gait Goal Independent,Four Wheel Walker Gait Distance 200 Days to Meet Goals 5 Frequency of Treatment Frequency Of Treatment Twice a Day Treatment Plan Physical Therapy Treatment Plan Bed Mobility Training,Transfer Training,Gait Training, Therapeutic Exercise,Balance Retraining,Post Op Education, Discharge Planning,Hot or Cold Pack,Neuromuscular Re-ed, Coordination Retraining,Manual Therapy Other Recommendations and Next Treatment ambulation using 4WW if Focus appropriate Recommendations To Nursing Amount of Assist Needed 1 Person Assist Discharge Recommendations PT Discharge Recommendations Home with Assistance, Outpatient PT Transportation Needs at Discharge Private Vehicle
[2019-12-09] MEDS: ACETAMINOPHEN 325 MG TABLET 650 MG PO (10:11)
[2019-12-09] MEDS: ASPIRIN EC 81 MG TABLET PO (10:12)
[2019-12-09] MEDS: VITAMIN B COMPLEX 1 CAPSULE 1 CAP PO (10:12)
[2019-12-09] MEDS: CHOLECALCIFEROL (VITAMIN D3) 1,000 UNIT TABLET 1000 UNIT PO (10:12)
[2019-12-09] MEDS: lisinopriL 10 MG TABLET PO (10:12)
[2019-12-09] MEDS: DOCUSATE 100 MG CAPSULE PO (10:12)
[2019-12-09] MEDS: SIMVASTATIN 40 MG TABLET PO (10:12)
[2019-12-09] MEDS: VITAMIN E 400 UNIT CAPSULE PO (10:13)
[2019-12-09] MEDS: CHLORTHALIDONE 25 MG TABLET PO (10:13)
[2019-12-09] MEDS: FISH OIL 1,000 MG CAPSULE 1000 MG PO (10:13)
--- NOTE | 2019-12-09 10:57 | PC.NURSE ---
Patient denies pain, using tylenol and ibuprofen for discomort. Moving around with physical therapy and is a stand by assist. She has been discharged and is waiting for her daughter to pick her up. CMS wnl to r.upper hip and patient just to bathroom.
--- NOTE | 2019-12-09 12:31 | CM.DPC ---
DCP: continued: case discussed in Team Rounds and PT noted that pt was doing well for the home setting and her daughter Clementina would be staying with her. Went to room to check in with pt. GABY Francisco confirmed that Dr. Hightower has put in the d/c order late morning and pt had already left for home with Clementina.
== END 2019-12-09 11:09 | disposition home or self-care (01) ==
LOC: AC 10:49 → OR 11:14 → AC 11:16 → OR 11:17 → AC 11:17
PROVIDERS: Admitting Provider Orthopaedic Surgery; PCP Internal Medicine; Referring Provider Internal Medicine; Visit Provider Orthopaedic Surgery
PROC: (CPT 27130; principal; 2019-12-08 07:45)
DX: M16.11 Unilateral primary osteoarthritis, right hip (principal); M87.051 Idiopathic aseptic necrosis of right femur; I10 Essential (primary) hypertension; E03.9 Hypothyroidism, unspecified; Z11.59 Encounter for screening for other viral diseases; Z01.812 Encounter for preprocedural laboratory examination
CPT/HCPCS: 27130; 36415; 73502; 76000; 85014; 85018; 87635; 97116; 97162; 97530; C1776; G0378; A9270; C9290; J0690; J1100; J2250; J2274; J2405; J2704

== ENCOUNTER → 2020-08-31 10:45 | Outpatient (CLI) | payer MEDICARE, OTHER, SELFPAY ==
[2019-12-08 13:42] VITALS: BMI 21.5
--- NOTE | 2020-08-31 | DI.MG.S_ITS ---
BILATERAL DIGITAL SCREENING MAMMOGRAM 3D/2D WITH CAD: 08/31/2020 CLINICAL: Routine screening. Comparison is made to exams dated: 08/30/2019 mammogram, 08/24/2018 mammogram, and 08/17/2017 mammogram - [facility]. The tissue of both breasts is heterogeneously dense. This may lower the sensitivity of mammography. Current study was also evaluated with a Computer Aided Detection (CAD) system. There are benign diffuse calcifications in both breasts. No significant masses, calcifications, or other findings are seen in either breast. There has been no significant interval change. IMPRESSION: BENIGN There is no mammographic evidence of malignancy. A 1 year screening mammogram is recommended. This exam was interpreted at Station ID: [id number]. NOTE: For mammograms, a report in lay terms will be sent to the patient. Approximately 15% of breast malignancies will not be visualized mammographically. In the management of a palpable breast mass, a negative mammogram must not discourage biopsy of a clinically suspicious lesion. Electronically Signed By: Holden cooley/tejal:08/31/2020 12:40:03 letter sent: Normal Exam ACR BI-RADS Category 2: Benign Finding(s) [id number]
== END ==
PROVIDERS: PCP Internal Medicine; Referring Provider Internal Medicine; Visit Provider Internal Medicine
DX: Z12.31 Encounter for screening mammogram for malignant neoplasm of breast (principal)
CPT/HCPCS: 77063; 77067

== ENCOUNTER → 2020-12-27 07:23 | Outpatient (CLI) | payer MEDICARE, OTHER, SELFPAY ==
[2019-12-08 13:42] VITALS: BMI 21.5
[2020-12-27 07:57] LABS: Add Manual Diff / Slide Review NO; Basophils Absolute Auto 0 /uL (0-100); Basophils Percent Auto 1.1 % (0-2); Eosinophils Absolute Auto 100 /uL (0-450); Eosinophils Percent Auto 2.7 % (2-4); Hematocrit 40.4 % (36-46); Hemoglobin 13.7 g/dL (12.0-16.0); Lymphocytes Absolute Auto 1500 /uL (1100-4500); Lymphocytes Percent Auto 37.9 % (25-40); Mean Corpuscular HGB Conc 33.9 % (30-36); Mean Corpuscular Hemoglobin 32.2 PG (26-34); Monocytes Absolute Auto 400 /uL (0-900); Monocytes Percent Auto 11.1 % (3-14); Neutrophils Absolute Auto 1900 /uL (1500-7000); Neutrophils Percent Auto 47.2 % (50-75); Platelet Count 371 X10^3/uL (150-400); Red Blood Cell Count 4.25 X10^6/uL (4.0-5.2)
[2020-12-27 08:16] LABS: Alanine Aminotransferase 16 IU/L (<35); Albumin 4.2 g/dL (3.5-5.0); Albumin Globulin Ratio 1.8 (1.0-2.8); Alkaline Phosphatase 44 U/L (38-126); Aspartate Aminotransferase 26 IU/L (14-36); BUN Creatinine Ratio 31.7 (6-22); Bilirubin Total 0.5 mg/dL (0.2-1.3); Blood Urea Nitrogen 19 mg/dL (7-17); Calcium 10.2 mg/dL (8.4-10.2); Carbon Dioxide 32 mmol/L (22-32); Chloride 94 mmol/L (98-107); Cholesterol 207 mg/dL (140-199); Estimated Glomerular Filt Rate > 60.0 mL/min (>60); Globulin 2.4 g/dL (1.7-4.1); Glucose 97 mg/dL (80-110); HEMOLYSIS < 15 (0-50); Sodium 132 mmol/L (137-145); Total Protein 6.6 g/dL (6.3-8.2); Triglycerides 34 mg/dL (35-150)
[2020-12-27 08:25] LABS: HDL Cholesterol 121 mg/dL (40-60); LDL Cholesterol Calculated 79 mg/dL (<100)
[2020-12-27 08:30] LABS: Free T4, Direct Thyroxine 1.11 ng/dL (0.78-2.19)
== END ==
PROVIDERS: PCP Internal Medicine; Referring Provider Internal Medicine; Visit Provider Internal Medicine
DX: E03.9 Hypothyroidism, unspecified (principal); E78.2 Mixed hyperlipidemia; I10 Essential (primary) hypertension
CPT/HCPCS: 36415; 80053; 80061; 84439; 84443; 85025

== ENCOUNTER → 2021-09-11 11:20 | Outpatient (CLI) | payer MEDICARE, OTHER, SELFPAY ==
[2019-12-08 13:42] VITALS: BMI 21.5
--- NOTE | 2021-09-11 | DI.MG.S_ITS ---
BILATERAL DIGITAL SCREENING MAMMOGRAM 3D/2D WITH CAD: 09/11/2021 CLINICAL: Routine screening. Comparison is made to exams dated: 08/31/2020 mammogram, 08/30/2019 mammogram, and 08/24/2018 mammogram - [facility]. The tissue of both breasts is heterogeneously dense. This may lower the sensitivity of mammography. Current study was also evaluated with a Computer Aided Detection (CAD) system. There are benign diffuse calcifications in both breasts. No significant masses, calcifications, or other findings are seen in either breast. There has been no significant interval change. IMPRESSION: BENIGN There is no mammographic evidence of malignancy. A 1 year screening mammogram is recommended. This exam was interpreted at Station ID: [id number]. NOTE: For mammograms, a report in lay terms will be sent to the patient. Approximately 15% of breast malignancies will not be visualized mammographically. In the management of a palpable breast mass, a negative mammogram must not discourage biopsy of a clinically suspicious lesion. Electronically Signed By: Marcia hoskins/tejal:09/11/2021 12:55:09 letter sent: Normal Exam ACR BI-RADS Category 2: Benign Finding(s) [id number]
== END ==
PROVIDERS: PCP Internal Medicine; Referring Provider Internal Medicine; Visit Provider Internal Medicine
DX: Z12.31 Encounter for screening mammogram for malignant neoplasm of breast (principal)
CPT/HCPCS: 77063; 77067

== ENCOUNTER → 2021-12-31 08:41 | Outpatient (CLI) | payer MEDICARE, OTHER, SELFPAY ==
[2019-12-08 13:42] VITALS: BMI 21.5
[2021-12-31 10:24] LABS: Alanine Aminotransferase 16 IU/L (<35); Albumin 4.6 g/dL (3.5-5.0); Albumin Globulin Ratio 1.8 (1.0-2.8); Alkaline Phosphatase 40 U/L (38-126); Aspartate Aminotransferase 28 IU/L (14-36); BUN Creatinine Ratio 22.1 (6-22); Bilirubin Total 0.6 mg/dL (0.2-1.3); Blood Urea Nitrogen 15 mg/dL (7-17); Calcium 9.4 mg/dL (8.4-10.2); Carbon Dioxide 32 mmol/L (22-32); Chloride 89 mmol/L (98-107); Cholesterol 213 mg/dL (140-199); Estimated Glomerular Filt Rate > 60 mL/min (>60); Globulin 2.6 g/dL (1.7-4.1); Glucose 92 mg/dL (80-110); HEMOLYSIS < 15 (0-50); Potassium 3.7 mmol/L (3.4-5.1); Sodium 127 mmol/L (137-145); Total Protein 7.2 g/dL (6.3-8.2); Triglycerides 40 mg/dL (35-150)
[2021-12-31 10:34] LABS: Free T4, Direct Thyroxine 1.72 ng/dL (0.78-2.19)
[2021-12-31 10:35] LABS: HDL Cholesterol 121 mg/dL (40-60); LDL Cholesterol Calculated 84 mg/dL (<100)
[2021-12-31 10:48] LABS: Thyroid Stimulating Hormone 0.246 uIU/mL (0.47-4.68)
== END ==
PROVIDERS: PCP Internal Medicine; Referring Provider Internal Medicine; Visit Provider Internal Medicine
DX: E03.9 Hypothyroidism, unspecified (principal); E78.2 Mixed hyperlipidemia; I10 Essential (primary) hypertension
CPT/HCPCS: 36415; 80053; 80061; 84439; 84443

== ENCOUNTER → 2022-08-05 10:43 | Outpatient (CLI) | payer MEDICARE, SELFPAY ==
[2019-12-08 13:42] VITALS: BMI 21.5
[2022-08-05 11:12] LABS: Alanine Aminotransferase 19 IU/L (<35); Albumin 4.7 g/dL (3.5-5.0); Albumin Globulin Ratio 1.6 (1.0-2.8); Alkaline Phosphatase 42 U/L (38-126); Aspartate Aminotransferase 29 IU/L (14-36); BUN Creatinine Ratio 28.8 (6-22); Bilirubin Total 0.4 mg/dL (0.2-1.3); Blood Urea Nitrogen 19 mg/dL (7-17); Calcium 9.6 mg/dL (8.4-10.2); Carbon Dioxide 29 mmol/L (22-32); Chloride 89 mmol/L (98-107); Estimated Glomerular Filt Rate > 60 mL/min (>60); Glucose 95 mg/dL (80-110); HEMOLYSIS < 15 (0-50); Potassium 3.7 mmol/L (3.4-5.1); Sodium 129 mmol/L (137-145); Total Protein 7.7 g/dL (6.3-8.2)
[2022-08-05 11:43] LABS: Thyroid Stimulating Hormone 0.395 uIU/mL (0.47-4.68)
== END ==
PROVIDERS: PCP Internal Medicine; Referring Provider Internal Medicine; Visit Provider Internal Medicine
DX: E03.9 Hypothyroidism, unspecified (principal); I10 Essential (primary) hypertension
CPT/HCPCS: 36415; 80053; 84439; 84443

== ENCOUNTER → 2022-09-13 09:54 | Outpatient (CLI) | payer MEDICARE, SELFPAY ==
[2019-12-08 13:42] VITALS: BMI 21.5
--- NOTE | 2022-09-13 | DI.MG.S_ITS ---
BILATERAL DIGITAL SCREENING MAMMOGRAM 3D/2D WITH CAD: 09/13/2022 CLINICAL: Routine screening. Comparison is made to exams dated: 09/11/2021 mammogram, 08/31/2020 mammogram, 08/30/2019 mammogram, and 08/24/2018 mammogram - [facility]. Both breasts are heterogeneously dense, which may obscure small masses (category c / 51-75% glandular tissue). Current study was also evaluated with a Computer Aided Detection (CAD) system. There are benign diffuse calcifications in both breasts. No significant masses, calcifications, or other findings are seen in either breast. There has been no significant interval change. IMPRESSION: BENIGN There is no mammographic evidence of malignancy. A 1 year screening mammogram is recommended. Based on the Tyrer Cuzick model (a risk assessment model) the patient's lifetime risk is 3.1% and her 10 year risk is 0.0%. According to the ACR, ACS, and NCCN guidelines, an annual breast MRI exam along with mammogram is recommended if the patient's lifetime risk is 20% or greater. This exam was interpreted at Station ID: [id number]. NOTE: For mammograms, a report in lay terms will be sent to the patient. Approximately 15% of breast malignancies will not be visualized mammographically. In the management of a palpable breast mass, a negative mammogram must not discourage biopsy of a clinically suspicious lesion. Electronically Signed By: Tavon zhou/tejal:09/15/2022 09:00:54 letter sent: Normal Exam ACR BI-RADS Category 2: Benign Finding(s) [id number]
== END ==
PROVIDERS: PCP Internal Medicine; Referring Provider Internal Medicine; Visit Provider Internal Medicine
DX: Z12.31 Encounter for screening mammogram for malignant neoplasm of breast (principal)
CPT/HCPCS: 77063; 77067

== ENCOUNTER → 2023-05-04 14:34 | Outpatient (CLI) | payer MEDICARE, SELFPAY ==
[2019-12-08 13:42] VITALS: BMI 21.5
[2023-05-04 15:31] LABS: Alanine Aminotransferase 14 IU/L (<35); Albumin 4.3 g/dL (3.5-5.0); Albumin Globulin Ratio 1.7 (1.0-2.8); Alkaline Phosphatase 38 U/L (38-126); Aspartate Aminotransferase 24 IU/L (14-36); BUN Creatinine Ratio 28.8 (6-22); Bilirubin Total 0.2 mg/dL (0.2-1.3); Blood Urea Nitrogen 17 mg/dL (7-17); Calcium 9.6 mg/dL (8.4-10.2); Carbon Dioxide 28 mmol/L (22-32); Chloride 96 mmol/L (98-107); Estimated Glomerular Filt Rate > 60 mL/min (>60); Globulin 2.5 g/dL (1.7-4.1); Glucose 85 mg/dL (80-110); HEMOLYSIS < 15 (0-50); Potassium 4.7 mmol/L (3.4-5.1); Sodium 130 mmol/L (137-145); Total Protein 6.8 g/dL (6.3-8.2)
[2023-05-04 15:49] LABS: Free T4, Direct Thyroxine 1.35 ng/dL (0.78-2.19)
[2023-05-04 16:03] LABS: Thyroid Stimulating Hormone 0.539 uIU/mL (0.47-4.68)
== END ==
PROVIDERS: PCP Internal Medicine; Referring Provider Internal Medicine; Visit Provider Internal Medicine
DX: I10 Essential (primary) hypertension (principal); E78.2 Mixed hyperlipidemia; E03.9 Hypothyroidism, unspecified
CPT/HCPCS: 36415; 80053; 84439; 84443

== ENCOUNTER → 2023-09-21 08:18 | Outpatient (CLI) | payer MEDICARE, SELFPAY ==
[2019-12-08 13:42] VITALS: BMI 21.5
--- NOTE | 2023-09-21 | DI.MG.S_ITS ---
BILATERAL DIGITAL SCREENING MAMMOGRAM 3D/2D WITH CAD: 09/21/2023 CLINICAL: Routine screening. Comparison is made to exams dated: 09/13/2022 mammogram, 09/11/2021 mammogram, 08/31/2020 mammogram, and 08/30/2019 mammogram - [facility]. Both breasts are heterogeneously dense, which may obscure small masses (category c / 51-75% glandular tissue). Current study was also evaluated with a Computer Aided Detection (CAD) system. There are benign diffuse calcifications in both breasts. No significant masses, calcifications, or other findings are seen in either breast. There has been no significant interval change. IMPRESSION: BENIGN There is no mammographic evidence of malignancy. A 1 year screening mammogram is recommended. Based on the Tyrer Cuzick model (a risk assessment model) the patient's lifetime risk is 1.5% and her 10 year risk is 0.0%. According to the ACR, ACS, and NCCN guidelines, an annual breast MRI exam along with mammogram is recommended if the patient's lifetime risk is 20% or greater. This exam was interpreted at Station ID: [id number]. NOTE: For mammograms, a report in lay terms will be sent to the patient. Approximately 15% of breast malignancies will not be visualized mammographically. In the management of a palpable breast mass, a negative mammogram must not discourage biopsy of a clinically suspicious lesion. Electronically Signed By: Tavon zhou/tejal:09/21/2023 09:03:09 letter sent: Normal Exam ACR BI-RADS Category 2: Benign Finding(s) [id number]
== END ==
LOC: MAMMO 08:18
PROVIDERS: PCP Internal Medicine; Referring Provider Internal Medicine; Visit Provider Internal Medicine
DX: Z12.31 Encounter for screening mammogram for malignant neoplasm of breast (principal); R92.333 Mammographic heterogeneous density, bilateral breasts
CPT/HCPCS: 77063; 77067

== ENCOUNTER → 2023-10-13 16:01 | Outpatient (CLI) | payer MEDICARE, SELFPAY ==
[2019-12-08 13:42] VITALS: BMI 21.5
--- NOTE | 2023-10-13 16:02 | DI.RAD.S_ITS ---
PROCEDURE: XR ACUTE ABDOMEN SERIES INDICATIONS: diarrhea TECHNIQUE: One view chest and two views of the abdomen were acquired. COMPARISON: None. FINDINGS: Surgical changes and devices: None. Chest: Lungs are clear. Heart size is normal. No pleural effusions. No pneumoperitoneum. Chronic interstitial changes Abdomen: Bowel gas pattern is normal. No suspicious calcifications. Visualized solid organ contours appear normal. Bones: No suspicious bony lesions. Degenerative disc disease and arthropathy in the lower lumbar spine. Right prosthesis in good position IMPRESSION: Degenerative changes without obstruction or acute pulmonary finding Approved by: John Chew M.D. on 10/13/2023 at 18:30
[2023-10-13 17:19] LABS: Add Manual Diff / Slide Review NO; Basophils Absolute Auto 100 /uL (0-100); Basophils Percent Auto 1.1 % (0-2); Eosinophils Absolute Auto 100 /uL (0-450); Hematocrit 38.6 % (36-46); Hemoglobin 12.9 g/dL (12.0-16.0); Lymphocytes Absolute Auto 1800 /uL (1100-4500); Lymphocytes Percent Auto 20.7 % (25-40); Mean Corpuscular HGB Conc 33.4 % (30-36); Mean Corpuscular Hemoglobin 31.9 PG (26-34); Mean Corpuscular Volume 95.4 fL (80-100); Monocytes Absolute Auto 800 /uL (0-900); Monocytes Percent Auto 9.5 % (3-14); Neutrophils Absolute Auto 5900 /uL (1500-7000); Neutrophils Percent Auto 67.7 % (50-75); Platelet Count 429 X10^3/uL (150-400); Red Blood Cell Count 4.04 X10^6/uL (4.0-5.2); White Blood Cell Count 8.8 X10^3/uL (4.5-11.0)
[2023-10-13 18:39] LABS: Erythrocyte Sedimentation Rate 10 MM/HR (0-20)
[2023-10-13 18:40] LABS: Alanine Aminotransferase 14 IU/L (<35); Albumin 4.4 g/dL (3.5-5.0); Albumin Globulin Ratio 1.3 (1.0-2.8); Alkaline Phosphatase 52 U/L (38-126); Aspartate Aminotransferase 26 IU/L (14-36); BUN Creatinine Ratio 35.5 (6-22); Bilirubin Total 0.4 mg/dL (0.2-1.3); Blood Urea Nitrogen 22 mg/dL (7-17); C-Reactive Protein Quant < 0.5 mg/dL (<1.0); Calcium 10.3 mg/dL (8.4-10.2); Carbon Dioxide 30 mmol/L (22-32); Chloride 97 mmol/L (98-107); Estimated Glomerular Filt Rate > 60 mL/min (>60); Globulin 3.3 g/dL (1.7-4.1); Glucose 99 mg/dL (80-110); HEMOLYSIS < 15 (0-50); Lipase 57 U/L (23-300); Potassium 4.4 mmol/L (3.4-5.1); Sodium 132 mmol/L (137-145); Total Protein 7.7 g/dL (6.3-8.2)
[2023-10-13 19:26] LABS: Thyroid Stimulating Hormone 0.501 uIU/mL (0.47-4.68)
[2023-10-16 05:33] LABS: Free T4, Direct Thyroxine 1.74 ng/dL (0.78-2.19)
== END ==
PROVIDERS: PCP Internal Medicine; Referring Provider Internal Medicine; Visit Provider Internal Medicine
DX: R19.7 Diarrhea, unspecified (principal); E03.9 Hypothyroidism, unspecified; E78.2 Mixed hyperlipidemia; D64.9 Anemia, unspecified; I10 Essential (primary) hypertension
CPT/HCPCS: 74022; 80053; 83690; 84439; 84443; 85025; 85651; 86140

== ENCOUNTER → 2023-10-18 09:29 | Outpatient (CLI) | payer MEDICARE, SELFPAY ==
[2019-12-08 13:42] VITALS: BMI 21.5
--- NOTE | 2023-10-18 09:31 | DI.CT.S_ITS ---
PROCEDURE: CT ABDOMEN PELVIS W CON INDICATIONS: diarrhea/abd pain TECHNIQUE: After the administration of intravenous contrast, axial sections acquired from the lung bases to the pubic symphysis. Coronal and sagittal reformats were performed. For radiation dose reduction, the following was used: automated exposure control, adjustment of mA and/or kV according to patient size. COMPARISON: [facility], CR, XR ACUTE ABDOMEN SERIES, 10/13/2023, 16:10. FINDINGS: Image quality: Portions of the lower pelvis are suboptimally evaluated secondary to metallic streak artifact from hip arthroplasty. Lower Chest: No significant findings. ABDOMEN: Liver: No solid mass. Liver is enlarged measuring 18.4 cm with mild steatosis. Gallbladder: No radiopaque gallstones or wall thickening. Biliary ducts: No biliary dilation. Pancreas: No ductal dilation. Spleen: Size is within normal limits. Adrenal Glands: No adrenal nodules. Kidneys and Ureters: No hydronephrosis. No solid mass. No complex renal cystic lesion which requires follow up. Stomach and Bowel: Normal colonic caliber, without significant wall thickening. Minimal diverticula without inflammatory change. Peritoneum: No abnormal intraperitoneal fluid. No free air. Ventral Wall: No significant ventral hernia. Abdominal Nodes: No retroperitoneal or mesenteric adenopathy by size criteria. Vessels: Aorta and inferior vena cava are normal in size. PELVIS: Pelvic Organs: Unremarkable. Bladder: No bladder wall thickening, accounting for underdistention. Pelvic Nodes: No enlarged lymph nodes. Miscellaneous: No inguinal hernias are seen. Bones: No aggressive osseous abnormality. Multilevel degenerative changes. Superior endplate deformity is present L4 of indeterminate age. IMPRESSION: No acute intra-abdominal or pelvic process. Diverticulosis. Dictated by: Nisreen Forbes M.D. on 10/18/2023 at 17:45 Approved by: Nisreen Forbes M.D. on 10/18/2023 at 17:47
== END ==
LOC: CT 09:30
PROVIDERS: PCP Internal Medicine; Referring Provider Internal Medicine; Visit Provider Internal Medicine
DX: K76.0 Fatty (change of) liver, not elsewhere classified (principal); R19.7 Diarrhea, unspecified; R10.9 Unspecified abdominal pain
CPT/HCPCS: 74177; Q9967

== ENCOUNTER → 2024-08-30 11:24 | Outpatient (CLI) | payer MEDICARE, SELFPAY ==
[2019-12-08 13:42] VITALS: BMI 21.5
[2024-08-30 12:11] LABS: Alanine Aminotransferase 20 IU/L (<35); Albumin 4.7 g/dL (3.5-5.0); Albumin Globulin Ratio 1.6 (1.0-2.8); Alkaline Phosphatase 60 U/L (38-126); Aspartate Aminotransferase 28 IU/L (14-36); BUN Creatinine Ratio 25.8 (6-22); Bilirubin Total 0.5 mg/dL (0.2-1.3); Blood Urea Nitrogen 24 mg/dL (7-17); Calcium 9.9 mg/dL (8.4-10.2); Carbon Dioxide 26 mmol/L (22-32); Chloride 94 mmol/L (98-107); Estimated Glomerular Filt Rate > 60 mL/min (>60); Glucose 98 mg/dL (80-110); HEMOLYSIS < 15 (0-50); Potassium 4.8 mmol/L (3.4-5.1); Sodium 132 mmol/L (137-145); Total Protein 7.7 g/dL (6.3-8.2)
[2024-08-30 12:24] LABS: Free T4, Direct Thyroxine 1.35 ng/dL (0.78-2.19)
[2024-08-30 12:38] LABS: Thyroid Stimulating Hormone 0.125 uIU/mL (0.47-4.68)
== END ==
PROVIDERS: PCP Internal Medicine; Referring Provider Internal Medicine; Visit Provider Internal Medicine
DX: I10 Essential (primary) hypertension (principal); E78.2 Mixed hyperlipidemia; E03.9 Hypothyroidism, unspecified
CPT/HCPCS: 36415; 80053; 84439; 84443

== ENCOUNTER → 2024-09-29 11:31 | Outpatient (CLI) | payer MEDICARE, SELFPAY ==
[2019-12-08 13:42] VITALS: BMI 21.5
--- NOTE | 2024-09-29 11:32 | DI.MG.S_ITS ---
MM screening mammo BI: 09/29/2024. BI-RADS: 0 CLINICAL: 84-year old female for bilateral screening mammogram. Tyrer-Cuzick lifetime risk of 0.7%. No personal or first-degree family history of breast cancer. PRIOR EXAMS 09/21/2023, 09/13/2022, 09/11/2021, 08/31/2020, 08/30/2019, 08/24/2018, 08/17/2017, 07/25/2016, 07/24/2015. MAMMOGRAPHY TECHNIQUE: 2D and 3D (tomosynthesis) digital mammographic views obtained, with additional images as needed for full coverage. Current study was also evaluated with a Computer Aided Detection (CAD) system. DENSITY C. The breasts are heterogeneously dense, which may obscure small masses. MAMMOGRAPHY FINDINGS Right: MLO only, Upper, Middle depth: Asymmetry needing additional imaging evaluation. Left: No suspicious mass, asymmetry, microcalcification, or other abnormality seen. IMPRESSION: Right (Asymmetry): MLO only, Upper, Middle depth * Incomplete - asymmetry needing additional imaging evaluation. Left * No evidence of malignancy. RECOMMENDATIONS Right: MLO only, Upper, Middle depth * Further evaluation with diagnostic mammography and diagnostic ultrasound. Ultrasound to be performed only if needed. OVERALL ASSESSMENT CATEGORY BI-RADS-0: Incomplete - Need Additional Imaging Evaluation. ELECTRONICALLY SIGNED: Jody Boyer M.D. on 09/30/2024 at 10:58:17 AM PT Interpreting Station ID: [id number]
== END ==
PROVIDERS: PCP Internal Medicine; Referring Provider Internal Medicine; Visit Provider Internal Medicine
DX: Z12.31 Encounter for screening mammogram for malignant neoplasm of breast (principal); R92.333 Mammographic heterogeneous density, bilateral breasts
CPT/HCPCS: 77063; 77067

== ENCOUNTER → 2024-10-21 08:40 | Outpatient (CLI) | payer MEDICARE, SELFPAY ==
[2019-12-08 13:42] VITALS: BMI 21.5
--- NOTE | 2024-10-21 08:41 | DI.MG.S_ITS ---
US breast RT limited, MM diagnostic mammo unilat RT: 10/21/2024 BI-RADS: 1 CLINICAL: 84-year old female for right diagnostic mammogram and right diagnostic breast ultrasound that is a recall from screening on 09/29/2024. The patient presents for additional evaluation of an inconclusive screening mammogram - asymmetry. Tyrer-Cuzick lifetime risk of 0.7%. No personal or first-degree family history of breast cancer. PRIOR EXAMS 09/29/2024, 09/21/2023, 09/13/2022, 09/11/2021, 08/31/2020, 08/30/2019, 08/24/2018, 08/17/2017, 07/25/2016, 07/24/2015. MAMMOGRAPHY TECHNIQUE: 2D and 3D (tomosynthesis) digital mammographic views obtained, with additional images as needed for full coverage. Current study was also evaluated with a Computer Aided Detection (CAD) system. ULTRASOUND TECHNIQUE TARGETED Right Breast Ultrasound: Real-time ultrasound exam was performed focused to area of clinical and/or imaging concern. DENSITY Right: C. The breasts are heterogeneously dense, which may obscure small masses. MAMMOGRAPHY FINDINGS Right: MLO only, Upper: No suspicious mass, asymmetry, microcalcification, or other abnormality seen. The questioned asymmetry in the superior right breast does not persist and represents superimposition of normal fibroglandular tissue. ULTRASOUND FINDINGS Right: Upper Outer at 11:00, 5 cm from nipple. Previous report: MLO only, Upper: There is no suspicious sonographic finding to account for imaging concern of an asymmetry on mammography. IMPRESSION: Right * No evidence of malignancy. RECOMMENDATIONS Bilateral * Annual screening mammography. COMMENTS: Findings and recommendations were conveyed to the patient during today's evaluation. OVERALL ASSESSMENT CATEGORY BI-RADS-1: Negative. [employer] [place] [employer] recommends annual screening mammography beginning at age 40 for women with average risk of breast cancer. ELECTRONICALLY SIGNED: Jody Boyer M.D. on 10/21/2024 at 10:14:43 AM PT Interpreting Station ID: [id number]
== END ==
PROVIDERS: PCP Internal Medicine; Referring Provider Internal Medicine; Visit Provider Internal Medicine
DX: R92.8 Other abnormal and inconclusive findings on diagnostic imaging of breast (principal); N64.89 Other specified disorders of breast; R92.333 Mammographic heterogeneous density, bilateral breasts
CPT/HCPCS: 76642; 77065; G0279